=== PATIENT | male | born 1965 | race Native Hawaiian/Other Pacific Islander ===

== ENCOUNTER 2017-01-29 12:06 | Outpatient (CLI) | payer OTHER | END 2017-01-29 12:11 | disposition short-term general hospital (02) | LOC: AMB 12:06 | DX: R06.09 Other forms of dyspnea (principal); R53.1 Weakness | CPT/HCPCS: A0425; A0427 ==

== ENCOUNTER 2017-01-29 12:15 | Emergency (ER) | payer OTHER ==
[~2017-01-29] VITALS: Ht 172.7 cm; Wt 81.6 kg
[2017-01-29 12:24] VITALS: TEMP 97.9
[2017-01-29 12:57] LABS: PLATELET COUNT 384 K/uL (142-355)
[2017-01-29 13:42] LABS: POTASSIUM 3.6 mmol/L (3.6-5.2); SODIUM 142 mmol/L (136-145)
[2017-01-29 14:30] VITALS: BP 149/84
== END 2017-01-29 14:30 | disposition home or self-care (01) ==
LOC: ED 12:15
DX: J20.9 Acute bronchitis, unspecified (principal)
CPT/HCPCS: 36415; 80053; 80307; 81000; 84484; 85027; 87081; 87804; 87880; 93005; 99283; G0479